=== PATIENT | female | born 1955 | race Two or more races ===

== ENCOUNTER 2020-01-30 23:37 | Inpatient (IN) | payer OTHER ==
[~2020-01-30] VITALS: Ht 157.5 cm; Wt 63.6 kg
[2020-01-30 23:41] VITALS: Ht 157.5 cm; Wt 63.6 kg
[2020-01-31 00:16] LABS: microscopic required? YES; urine erythrocyte 1+ (NEGATIVE)
[2020-01-31 00:25] LABS: BASOPHIL % 0.3 % (0-2); PLATELET COUNT 237 x10^3mcL (130-400); RED CELL DISTRIBUTION WIDTH 13.6 % (11.5-14.5)
[2020-01-31 00:31] LABS: CALCIUM 9.3 mg/dL (8.5-10.1); CARBON DIOXIDE 30.9 mmol/L (21-32); CHLORIDE SERUM 101 mmol/L (98-107); CREATININE SERUM 0.9 mg/dL (0.6-1.0); GFR1 > 60 mL/min; GLUCOSE SERUM 158 mg/dL (74-106); POTASSIUM SERUM 3.3 mmol/L (3.5-5.1); SODIUM SERUM 141 mmol/L (136-145)
[2020-01-31 00:42] LABS: ALBUMIN 3.8 g/dL (3.4-5.0); ALKALINE PHOSPHATASE 93 U/L (46-116); ALT/SGPT 56 U/L (14-59); AST/SGOT 71 U/L (15-37); BILIRUBIN TOTAL 0.4 mg/dL (0.20-1.00); HDL CHOLESTEROL 54 mg/dL (40-60)
[2020-01-31 00:43] LABS: FREE THYROXINE INDEX 2.4 ug/dL (1.4-4.5)
[2020-01-31 00:48] LABS: CHOLESTEROL 267 mg/dL (<200); CHOLESTEROL/HDL RATIO 4.9; LIPASE 3449 IU/L (73-393); TRIGLYCERIDES 210 mg/dL (<150)
[2020-01-31 01:43] LABS: T3 TOTAL 1.4 ng/mL
[2020-01-31] MEDS ORDERED: AMO500 PO (01:50)
[2020-01-31] MEDS ORDERED: PRA20 PO (01:51)
[2020-01-31 02:58] VITALS: BP 139/77
[2020-01-31 07:09] LABS: BASOPHIL % 0.4 % (0-2); PLATELET COUNT 216 x10^3mcL (130-400); RED CELL DISTRIBUTION WIDTH 13.6 % (11.5-14.5)
[2020-01-31 07:33] LABS: ALKALINE PHOSPHATASE 75 U/L (46-116); ALT/SGPT 143 U/L (14-59); AST/SGOT 203 U/L (15-37); BILIRUBIN TOTAL 0.44 mg/dL (0.20-1.00); CALCIUM 8.8 mg/dL (8.5-10.1); CARBON DIOXIDE 32.3 mmol/L (21-32); CHLORIDE SERUM 109 mmol/L (98-107); CREATININE SERUM 0.8 mg/dL (0.6-1.0); GFR1 > 60 mL/min; GLUCOSE SERUM 95 mg/dL (74-106); POTASSIUM SERUM 4.2 mmol/L (3.5-5.1); SODIUM SERUM 145 mmol/L (136-145); TOTAL PROTEIN, SERUM 6.6 g/dL (6.4-8.2)
[2020-01-31 07:41] LABS: ALBUMIN 3.1 g/dL (3.4-5.0)
[2020-01-31 07:50] LABS: LIPASE 4012 IU/L (73-393)
[2020-01-31 08:01] VITALS: BP 113/52
[2020-01-31 12:35] VITALS: BP 143/67
[2020-01-31 16:28] VITALS: BP 115/56
[2020-01-31 20:53] VITALS: BP 125/71
[2020-02-01 05:15] VITALS: BP 112/61
[2020-02-01 06:55] LABS: BASOPHIL % 1.2 % (0-2); PLATELET COUNT 242 x10^3mcL (130-400); RED CELL DISTRIBUTION WIDTH 13.5 % (11.5-14.5)
[2020-02-01 07:13] LABS: CHLORIDE SERUM 108 mmol/L (98-107)
[2020-02-01 07:31] LABS: ALKALINE PHOSPHATASE 67 U/L (46-116); ALT/SGPT 107 U/L (14-59); AST/SGOT 70 U/L (15-37); BILIRUBIN TOTAL 0.3 mg/dL (0.20-1.00); CALCIUM 8.8 mg/dL (8.5-10.1); CARBON DIOXIDE 24.5 mmol/L (21-32); CREATININE SERUM 0.6 mg/dL (0.6-1.0); GFR1 > 60 mL/min; GLUCOSE SERUM 105 mg/dL (74-106); LIPASE 156 IU/L (73-393); POTASSIUM SERUM 4.4 mmol/L (3.5-5.1); SODIUM SERUM 142 mmol/L (136-145)
[2020-02-01 07:37] LABS: ALBUMIN 3.2 g/dL (3.4-5.0)
[2020-02-01 08:28] VITALS: BP 129/67
[2020-02-01 13:21] VITALS: BP 95/60
[2020-02-01 16:50] VITALS: BP 138/76
[2020-02-01 20:50] VITALS: BP 136/65
[2020-02-02 05:57] VITALS: BP 125/58
[2020-02-02 06:26] LABS: ALKALINE PHOSPHATASE 118 U/L (46-116); ALT/SGPT 595 U/L (14-59); AST/SGOT 514 U/L (15-37); CALCIUM 9.4 mg/dL (8.5-10.1); CARBON DIOXIDE 28.3 mmol/L (21-32); CHLORIDE SERUM 106 mmol/L (98-107); CREATININE SERUM 0.8 mg/dL (0.6-1.0); GFR1 > 60 mL/min; GLUCOSE SERUM 168 mg/dL (74-106); POTASSIUM SERUM 4.4 mmol/L (3.5-5.1); SODIUM SERUM 138 mmol/L (136-145); TOTAL PROTEIN, SERUM 7.3 g/dL (6.4-8.2)
[2020-02-02 06:27] LABS: BASOPHIL % 0.3 % (0-2); PLATELET COUNT 233 x10^3mcL (130-400); RED CELL DISTRIBUTION WIDTH 13.5 % (11.5-14.5)
[2020-02-02 06:49] LABS: ALBUMIN 3.3 g/dL (3.4-5.0)
[2020-02-02 07:54] LABS: LIPASE 12237 IU/L (73-393)
[2020-02-02 09:02] VITALS: BP 109/50
[2020-02-02 11:38] VITALS: BP 118/56
[2020-02-02 16:17] VITALS: BP 136/63
[2020-02-02 20:43] VITALS: BP 118/61
[2020-02-03 05:54] VITALS: BP 134/69
[2020-02-03 06:40] LABS: BASOPHIL % 0.4 % (0-2); PLATELET COUNT 218 x10^3mcL (130-400); RED CELL DISTRIBUTION WIDTH 13.6 % (11.5-14.5)
[2020-02-03 07:04] LABS: ALBUMIN 3.1 g/dL (3.4-5.0); ALKALINE PHOSPHATASE 97 U/L (46-116); ALT/SGPT 366 U/L (14-59); AST/SGOT 170 U/L (15-37); BILIRUBIN TOTAL 0.53 mg/dL (0.20-1.00); CALCIUM 9.4 mg/dL (8.5-10.1); CARBON DIOXIDE 31.4 mmol/L (21-32); CHLORIDE SERUM 105 mmol/L (98-107); CREATININE SERUM 0.6 mg/dL (0.6-1.0); GFR1 > 60 mL/min; GLUCOSE SERUM 110 mg/dL (74-106); LIPASE 851 IU/L (73-393); MAGNESIUM 1.9 mg/dL (1.8-2.4); POTASSIUM SERUM 3.9 mmol/L (3.5-5.1); SODIUM SERUM 139 mmol/L (136-145); TOTAL PROTEIN, SERUM 7.1 g/dL (6.4-8.2)
[2020-02-03 12:36] VITALS: BP 118/62
[2020-02-03 15:57] VITALS: BP 138/63
[2020-02-03 21:02] VITALS: BP 134/62
[2020-02-04 05:24] VITALS: BP 148/65
[2020-02-04 06:53] LABS: BASOPHIL % 0.2 % (0-2); PLATELET COUNT 187 x10^3mcL (130-400); RED CELL DISTRIBUTION WIDTH 13.9 % (11.5-14.5)
[2020-02-04 07:01] LABS: CALCIUM 8.9 mg/dL (8.5-10.1); CARBON DIOXIDE 31.8 mmol/L (21-32); CHLORIDE SERUM 105 mmol/L (98-107); CREATININE SERUM 0.7 mg/dL (0.6-1.0); GFR1 > 60 mL/min; GLUCOSE SERUM 119 mg/dL (74-106); MAGNESIUM 1.7 mg/dL (1.8-2.4); POTASSIUM SERUM 3.5 mmol/L (3.5-5.1); SODIUM SERUM 143 mmol/L (136-145)
[2020-02-04 07:41] LABS: LIPASE 2942 IU/L (73-393)
[2020-02-04 08:54] VITALS: BP 127/61
[2020-02-04 13:47] VITALS: BP 137/81
[2020-02-04 16:38] VITALS: BP 139/61
[2020-02-04 21:31] VITALS: BP 138/66
[2020-02-05] VITALS: BP 138/66
[2020-02-05 05:50] VITALS: BP 128/56
[2020-02-05 07:09] LABS: ALKALINE PHOSPHATASE 164 U/L (46-116); ALT/SGPT 295 U/L (14-59); AST/SGOT 84 U/L (15-37); BILIRUBIN TOTAL 0.69 mg/dL (0.20-1.00); CALCIUM 9.3 mg/dL (8.5-10.1); CARBON DIOXIDE 31.4 mmol/L (21-32); CHLORIDE SERUM 105 mmol/L (98-107); CREATININE SERUM 0.5 mg/dL (0.6-1.0); GFR1 > 60 mL/min; GLUCOSE SERUM 84 mg/dL (74-106); LIPASE 124 IU/L (73-393); MAGNESIUM 1.9 mg/dL (1.8-2.4); POTASSIUM SERUM 3.2 mmol/L (3.5-5.1); SODIUM SERUM 144 mmol/L (136-145); TOTAL PROTEIN, SERUM 6.6 g/dL (6.4-8.2)
[2020-02-05 07:15] LABS: ALBUMIN 2.5 g/dL (3.4-5.0)
[2020-02-05 07:35] LABS: BASOPHIL % 0.9 % (0-2); PLATELET COUNT 215 x10^3mcL (130-400); RED CELL DISTRIBUTION WIDTH 13.8 % (11.5-14.5)
[2020-02-05 08:51] VITALS: BP 144/64
[2020-02-05 13:03] VITALS: BP 131/64
[2020-02-05 16:27] VITALS: BP 101/40
[2020-02-05 17:40] VITALS: BP 101/68
== END 2020-02-05 18:50 | disposition home or self-care (01) | DRG 417 ==
LOC: ED 23:37 → DU 01-31 01:24
PROVIDERS: Internal Medicine; Internal Medicine Pulmonary Disease; Specialist; Surgery; ADMIT Internal Medicine
PROC: 0FT44ZZ Resection of Gallbladder, Percutaneous Endoscopic Approach (ICD-10-PCS; principal; 2020-02-01 11:30)
PROC: BF101ZZ Fluoroscopy of Bile Ducts using Low Osmolar Contrast (ICD-10-PCS; 2020-02-03)
PROC: 0F798ZZ Dilation of Common Bile Duct, Via Natural or Artificial Opening Endoscopic (ICD-10-PCS; 2020-02-03 07:30)
DX: K80.00 Calculus of gallbladder with acute cholecystitis without obstruction (principal); K85.10 Biliary acute pancreatitis without necrosis or infection; N39.0 Urinary tract infection, site not specified; E78.00 Pure hypercholesterolemia, unspecified; E87.6 Hypokalemia; E78.5 Hyperlipidemia, unspecified; Z68.26 Body mass index [BMI] 26.0-26.9, adult; Z98.51 Tubal ligation status
CPT/HCPCS: 43262; 43264; 83880; 84439; C1769; C1887; G0378; J0694; J0696; J1170; J1610; J1650; J1885; J2175; J2250; J2270; J2405; J3010; J3480; J3490; J7030; J7060; J7120; Q0092; Q9967

== ENCOUNTER 2020-07-04 21:22 | Emergency (ER) | payer OTHER ==
[~2020-07-04] VITALS: Ht 162.6 cm; Wt 75.3 kg
[~2020-07-04 21:22] MED LIST: AMO500 PO; PRA20 PO
[2020-07-04 21:32] VITALS: Ht 162.6 cm; Wt 75.3 kg
[2020-07-04 22:48] LABS: BASOPHIL % 1.7 % (0-2); PLATELET COUNT 222 x10^3mcL (130-400); RED CELL DISTRIBUTION WIDTH 13.9 % (11.5-14.5)
[2020-07-04 23:01] LABS: CALCIUM 9.5 mg/dL (8.5-10.1); CARBON DIOXIDE 34.3 mmol/L (21-32); CHLORIDE SERUM 103 mmol/L (98-107); CREATININE SERUM 0.9 mg/dL (0.6-1.0); GFR1 > 60 mL/min; GLUCOSE SERUM 88 mg/dL (74-106); POTASSIUM SERUM 4.1 mmol/L (3.5-5.1); SODIUM SERUM 140 mmol/L (136-145)
[2020-07-04 23:09] LABS: ALBUMIN 3.8 g/dL (3.4-5.0); ALKALINE PHOSPHATASE 84 U/L (46-116); ALT/SGPT 30 U/L (14-59); AST/SGOT 20 U/L (15-37); BILIRUBIN TOTAL 0.24 mg/dL (0.20-1.00); TOTAL PROTEIN, SERUM 7.4 g/dL (6.4-8.2)
[2020-07-05 00:33] VITALS: BP 136/72
== END 2020-07-05 00:33 | disposition home or self-care (01) ==
LOC: ED 21:22
PROVIDERS: Student in an Organized Health Care Education/Training Program
DX: I10 Essential (primary) hypertension (principal); R51 Headache; E78.00 Pure hypercholesterolemia, unspecified